=== PATIENT | male | born 1980 | race Caucasian/White ===

== ENCOUNTER 2020-05-16 09:51 | Outpatient (CLI) | payer BC, SELFPAY ==
[2020-05-19 19:17] LABS: COVID-19 RT-PCR Result NEGATIVE (Negative)
== END 2020-05-16 10:11 ==
PROVIDERS: PCP Family Medicine; Visit Provider Family Medicine
DX: Z11.59 Encounter for screening for other viral diseases (principal)
CPT/HCPCS: U0003

== ENCOUNTER 2020-09-04 16:46 | Outpatient (REF) | payer BC, SELFPAY ==
[2020-09-04 13:36] LABS: Hemoglobin A1C 5.6 % (<5.7)
[2020-09-04 14:01] LABS: Calculated LDL 114 mg/dL (<100); Cholesterol 196 mg/dL (<200); HDL Cholesterol 69 mg/dL (40-60); Triglyceride 68 mg/dL (<150)
== END 2020-09-04 16:47 | disposition home or self-care (01) ==
LOC: LBN 16:46
PROVIDERS: PCP Family Medicine; Visit Provider Physician Assistant
DX: Z00.00 Encounter for general adult medical examination without abnormal findings (principal); Z13.220 Encounter for screening for lipoid disorders; Z13.1 Encounter for screening for diabetes mellitus
CPT/HCPCS: 80061; 83036

== ENCOUNTER 2022-12-06 13:45 | Outpatient (REF) | payer BC, SELFPAY ==
--- NOTE | 2022-12-06 08:45 | SKI_PTH ---
PATIENT: Kal Veras LOC: [facility] U#:[id number] AGE/SX: 42/M ROOM: RE12/06/[address]: NANI Alcala : 1980 BED: DIS: 12/06/2022 SPEC #: [id number] RECD: 12/06/22 13:48 STATUS: PILLO REKvng #: [id number] LAUREEN: 12/06/22 08:[address]: Esteban Rich DEPT: Surgical Specimen RECD BY: Sia Lopez ENTERED: 12/06/22 13:49 SP TYPE: JOSEP CORONADO DR: Jesica Kingsley Tissues: 1 - SKIN BIOPSY(SHAVE/PUNCH) Procedures: SKIN LEVEL 4 Comments: [id number]
== END 2022-12-06 13:46 | disposition home or self-care (01) ==
LOC: LBN 13:45
PROVIDERS: PCP Family Medicine; Visit Provider Physician Assistant
DX: D22.9 Melanocytic nevi, unspecified (principal)
CPT/HCPCS: 88305

== ENCOUNTER 2024-12-22 13:51 | Outpatient (REF) | payer BC, SELFPAY ==
[2024-12-22 22:49] LABS: PSA, Screening 0.8 ng/mL (<=2.5)
[2024-12-22 23:23] LABS: Cholesterol 197 mg/dL (<200); Triglyceride 39 mg/dL (<150)
[2024-12-22 23:50] LABS: Calculated LDL 120 mg/dL (<100); HDL Cholesterol 70 mg/dL (>or=40)
== END 2024-12-22 13:52 | disposition home or self-care (01) ==
LOC: LBN 13:51
PROVIDERS: PCP Family Medicine; Visit Provider Family Medicine
DX: Z12.5 Encounter for screening for malignant neoplasm of prostate (principal); Z80.42 Family history of malignant neoplasm of prostate; Z13.6 Encounter for screening for cardiovascular disorders
CPT/HCPCS: 80061; 84153